=== PATIENT | male | born 1950 | race Caucasian/White ===

== ENCOUNTER 2024-03-24 08:49 | Outpatient (OUT) | payer MEDICARE, SELFPAY ==
--- NOTE | 2024-03-24 08:57 | ECG_ITS ---
The [facility] Test Date: 2024-03-24 Pat Name: MAGGIE HAQUE Department: Room: - Gender: Male [employer]: : 1950 Requested By: KYLEE REMY Order Number: [id number] Reading MD: KESHA POWER Measurements Intervals [place] Rate: 44 P: 54 [place]: 161 QRS: 42 QRSD: 97 T: 37 QT: 439 QTc: 379 Interpretive Statements SINUS BRADYCARDIA No previous ECG available for comparison Electronically Signed On 03-24-2024 22:42:12 EDT by KESHA POWER
--- NOTE | 2024-03-24 08:57 | XR_ITS ---
The [address] [address] Patient Name: MAGGIE HAQUE MRN: [id number] date: 1950 Sex: M Assigned Patient Location: [facility] Current Patient Location: [facility] Accession/Order Number: [id number] Exam Date: 03/24/2024 09:35 Report Date: 03/24/2024 09:57 At the request of: KYLEE REMY Procedure: XR chest 2V EXAMINATION: XR chest 2V HISTORY: Preop exam COMPARISON: No relevant comparison available. TECHNIQUE: PA and lateral FINDINGS: LUNGS: No significant pulmonary parenchymal abnormalities. VASCULATURE: No increased pulmonary vasculature. PLEURA: No pneumothorax, effusion, or pleural thickening. CARDIAC: No cardiomegaly or cardiac silhouette abnormality. MEDIASTINUM: No visible mass or adenopathy. BONES: Mild degenerative disc disease and spondylosis without visible acute abnormalities. OTHER: Negative. XR/XR chest 2V IMPRESSION: No acute cardiopulmonary process Electronically authenticated by: TD FOFANA Date: 03/24/2024 09:57
--- NOTE | 2024-03-24 09:47 | P.GSHP_ITS ---
History of Present Illness History of Present Illness Chief complaint: hx of bladder cancer Narrative: Patient presents for preadmission testing. The patient states he had renal cancer with a nephrectomy in 2020, his previous urologist retired, and he had a new visit to establish care with Dr. Mercado which included a cystoscopy. The patient states Dr. Mercado would like to do a more extensive screening out of caution because of his history. The patient denies any urological symptoms at this time. The patient states he is very active, he golfs and walks the course regularly, he has no cardiac or chronic health conditions other than bradycardia. Review of Systems ROS Narrative REVIEW OF SYSTEMS: Negative except as stated in HPI, ten or more systems reviewed. Constitutional: No fever, chills, weakness ENT: No sore throat or epistaxis Cardiovascular: No edema, chest pain, palpitations, or activity intolerance Respiratory: No shortness of breath, cough, or wheezing Musculoskeletal: No joint pain or swelling Gastrointestinal: No abdominal pain, constipation, diarrhea, or vomiting Genitourinary: No dysuria or hematuria Neurological: No numbness, tingling, weakness, or headache Psychiatric: No mood changes PFSH PFSH Medical History (Updated 03/24/24 @ 09:41 by Isaura Escobedo NP) Bradycardia ?R00.1 - Bradycardia, unspecified (ICD-10) Solitary kidney Renal cancer ?C64.9 - Malignant neoplasm of unspecified kidney, except renal pelvis (ICD- 10) Bladder cancer ?C67.9 - Malignant neoplasm of bladder, unspecified (ICD-10) Arthritis ?M19.90 - Unspecified osteoarthritis, unspecified site (ICD-10) COVID-19 ?U07.1 - COVID-19 (ICD-10) Snoring ?R06.83 - Snoring (ICD-10) Atrial fibrillation ?I48.91 - Unspecified atrial fibrillation (ICD-10) Pyloric stenosis ?K31.1 - Adult hypertrophic pyloric stenosis (ICD-10) Surgical History (Updated 03/24/24 @ 09:19 by Isaura Escobedo NP) Hx of LASIK ?Z98.890 - Other specified postprocedural states (ICD-10) History of colonoscopy ?Z98.890 - Other specified postprocedural states (ICD-10) History of arthroscopy of knee ?Z98.890 - Other specified postprocedural states (ICD-10) History of tonsillectomy ?Z90.89 - Acquired absence of other organs (ICD-10) History of repair of pyloric stenosis ?Z98.890 - Other specified postprocedural states (ICD-10) History of hernia repair ?Z98.890 - Other specified postprocedural states (ICD-10) ?Z87.19 - Personal history of other diseases of the digestive system (ICD-10) H/O right nephrectomy ?Z90.5 - Acquired absence of kidney (ICD-10) Family History (Updated 03/24/24 @ 09:19 by Isaura Escobedo NP) Other CHF (congestive heart failure) Family history of colon cancer Family history of coronary artery disease Family history of diabetes mellitus Family history of heart disease Family history of liver cancer Family history of renal failure Family history of stroke Social History (Updated 03/24/24 @ 09:09 by Isaura Escobedo NP) Within the past year, how often did you have a drink containing alcohol: 4 or more times a week Within the past year, how many standard drinks containing alcohol did you have on a typical day: 1 or 2 Total score: 0 Score interpretation: A score less than 4 is consistent with normal alcohol consumption. Smoking status: Never smoker Non-prescribed substance use: denies use Previous occupational history: Retired Teacher Highest level of school completed/degree received: Master's degree Meds Home Medications and Allergies Home Medications ?Medication ?Instructions ?Recorded ?Confirmed ?Type calcium citrate 200 mg (950 mg) 200 mg PO DAILY 03/24/24 03/24/24 History tablet coenzyme Q10 30 mg capsule (Co 30 mg PO DAILY 03/24/24 03/24/24 History Q-10) multivitamin-ferrous 1 tab PO DAILY 03/24/24 03/24/24 History fumarate-folic acid 18 mg-400 mcg tablet (Centrum Complete) Allergies Allergy/AdvReac Type Severity Reaction Status Date / Time No Known Drug Allergies Allergy Verified 03/24/24 09:07 Exam Narrative Exam Narrative: Constitutional: Awake, alert, comfortable, well-appearing, nontoxic, interactive, vital signs as charted Head: Normocephalic, atraumatic Neck: Supple, normal appearance, normal range of motion, no meningeal signs, no lymphadenopathy Respiratory: No respiratory distress, breath sounds clear Cardiovascular: Bradycardic rate, regular rhythm, strong and regular heart tones Abdomen: Nontender, normal bowel sounds, soft, no CVA tenderness Musculoskeletal: Normal gait, no swelling or edema Skin: No rashes or induration, no lesions, only visible skin inspected Neuro: No neurological deficits, normal sensation Psychiatric: Oriented ?3, normal affect Assessment and Plan Assessment and Plan (1) Renal cancer: (2) Bladder cancer: (3) Solitary kidney: Plan Cystoscopy, left ureteroscopy, left pyeloscopy, possible biopsy of left kidney/ureter scheduled with Dr. Mercado April 08, 2024.
[2024-03-24 09:48] LABS: Basophils Percent Auto 0.7 % (0.2-2.0); Eosinophils Absolute Auto 0.2 10^3/uL (0.0-0.7); Eosinophils Percent Auto 4.6 % (0.9-7.0); Hematocrit 48.6 % (42.0-54.0); Immature Granulocytes Abs Auto 0.02 10^3/uL (0.00-0.03); Immature Granulocytes Pct Auto 0.5 % (0.0-0.5); Lymphocytes Absolute Auto 0.9 10^3/uL (1.2-3.8); Lymphocytes Percent Auto 20.6 % (20.5-60.0); Mean Corpuscular HGB Conc 32.9 g/dL (29.9-35.2); Mean Corpuscular Hemoglobin 32.2 pg (25.9-34.0); Mean Corpuscular Volume 97.8 fL (80.0-94.0); Monocytes Absolute Auto 0.7 10^3/uL (0.3-0.8); Monocytes Percent Auto 15.8 % (1.7-12.0); Neutrophils Absolute Auto 2.5 10^3/uL (1.4-6.5); Neutrophils Percent Auto 57.8 % (43.0-75.0); Platelet Count 159 10^3/uL (150-450); Red Blood Count 4.97 10^6/uL (4.70-6.10); White Blood Count 4.4 10^3/uL (4.0-11.0)
[2024-03-24 11:18] LABS: INR 0.95; Partial Thromboplastin Time 29.4 sec (22.3-36.2); Prothrombin Time 10.1 sec (9.0-11.6)
[2024-03-24 11:29] LABS: Anion Gap 11.1; BUN Creatinine Ratio 9.3; Chloride 106 mmol/L (98-107); Estimated GFR (African America 55 (>=60); Estimated GFR (Non-African Ame 45 (>=60); Glucose 106 mg/dL (74-106); Potassium 5.1 mmol/L (3.5-5.1); Sodium 140 mmol/L (136-145)
== END 2024-03-24 08:50 | disposition home or self-care (01) ==
LOC: PST 08:52
PROVIDERS: PCP Family Medicine; Visit Provider Urology
DX: Z01.810 Encounter for preprocedural cardiovascular examination (principal); Z01.812 Encounter for preprocedural laboratory examination; Z01.818 Encounter for other preprocedural examination; Z85.51 Personal history of malignant neoplasm of bladder
CPT/HCPCS: 36415; 71046; 80048; 85025; 85610; 85730; 93005; G0463